=== PATIENT | male | born 1960 | race Caucasian/White ===

== ENCOUNTER 2022-12-21 12:21 | Outpatient (CLI) | payer BC | END 2022-12-21 12:22 | disposition home or self-care (01) | LOC: BICRAD 12:21 | PROVIDERS: ATTEND Orthopaedic Surgery | DX: Z01.818 Encounter for other preprocedural examination (principal) | CPT/HCPCS: 71045 ==

== ENCOUNTER 2022-12-27 11:05 | Outpatient (CLI) | payer BC | END 2022-12-27 11:06 | disposition home or self-care (01) | LOC: MRI 11:05 | PROVIDERS: ATTEND Orthopaedic Surgery | DX: M54.50 Low back pain, unspecified (principal); M47.22 Other spondylosis with radiculopathy, cervical region; M47.26 Other spondylosis with radiculopathy, lumbar region; M47.817 Spondylosis without myelopathy or radiculopathy, lumbosacral region; M47.815 Spondylosis without myelopathy or radiculopathy, thoracolumbar region; M43.17 Spondylolisthesis, lumbosacral region; M48.061 Spinal stenosis, lumbar region without neurogenic claudication | CPT/HCPCS: 72141; 72148 ==